=== PATIENT | female | born 1960 | race Caucasian/White ===

== ENCOUNTER → 2019-08-17 15:53 | Outpatient (CLI) | payer OTHER, SELFPAY ==
--- NOTE | 2019-08-17 15:59 | DI.RAD.S_ITS ---
PROCEDURE: XR TMJ BI INDICATIONS: R/O TMJ TECHNIQUE: 6 view(s) of the left and right temporomandibular joints acquired. COMPARISON: [facility], CT, HEAD WITHOUT CONTRAST, 11/27/2007, 15:39. FINDINGS: Bones: No fractures or dislocations. No suspicious bony lesions. Left temporomandibular joint space narrowing and sclerosis. Right temporomandibular sclerosis. There appears to be anatomic alignment although this would be better assessed with cross-sectional imaging Soft tissues: No suspicious soft tissue calcifications. IMPRESSION: Bilateral temporomandibular degenerative changes although radiographically left slightly greater than right. As clinically warranted, further assessment with dedicated temporomandibular joint MRI could be performed. Dictated by: Hi Soni M.D. on 08/17/2019 at 17:14 Approved by: Hi Soni M.D. on 08/17/2019 at 17:18
== END ==
PROVIDERS: PCP Nurse Practitioner; Visit Provider Nurse Practitioner
DX: R68.84 Jaw pain (principal)
CPT/HCPCS: 70330

== ENCOUNTER → 2019-08-30 08:23 | Outpatient (CLI) | payer OTHER, SELFPAY ==
--- NOTE | 2019-08-30 08:25 | DI.MRI.S_ITS ---
PROCEDURE: MR TMJ WO CON INDICATIONS: Right ear pain with eating/ jaw pain, abnormal TMJ xray TECHNIQUE: Axial T1 spin echo, coronal and sagittal PD fast spin echo through the temporomandibular joints, in both the closed- and open-mouth positions. COMPARISON: [facility], , XR TMJ BI, 08/17/2019, 15:56. FINDINGS: Image quality: Excellent. Right: On closed mouth view, the disc is poorly visualized but appears to be anterior to the mandibular head. On open mouth view the disc is also poorly visualized. Hypointense focus is noted anterior to the mandibular head, possibly a portion of the disc. There is sclerosis and narrowing at the temporomandibular joint. Left: On closed mouth view, the articular disc is anterior to the mandibular head. On open mouth views the disc is in anatomic position overlying the mandibular head. Joint is normally aligned on closed and open-mouth positioning. There is sclerosis and narrowing at the temporomandibular joint. IMPRESSION: 1. Sclerosis and narrowing of the TM joints bilaterally, as correlated with xray appearance. 2. The left side demonstrates dislocation of the disc with reduction. 3. The right side demonstrates suspected dislocation of the disc without reduction. As noted above, the disc is poorly visualized. Dictated by: Marisela Swan M.D. on 08/30/2019 at 14:01 Approved by: Marisela Swan M.D. on 08/30/2019 at 14:37
== END ==
PROVIDERS: PCP Nurse Practitioner; Visit Provider Nurse Practitioner
DX: M26.603 Bilateral temporomandibular joint disorder, unspecified (principal); H92.02 Otalgia, left ear; R68.84 Jaw pain; R93.89 Abnormal findings on diagnostic imaging of other specified body structures
CPT/HCPCS: 70336

== ENCOUNTER 2021-05-23 10:18 | Emergency (ER) | payer OTHER, SELFPAY ==
[2021-05-23] VITALS (9 sets, daily range): BP systolic 125–142; BP diastolic 65–73; PULSE 52–74; RESP 14–18; TEMP 36.6; O2SAT 99–100; BMI 22.3
[2021-05-23 11:52] LABS: Add Manual Diff / Slide Review NO; Basophils Absolute Auto 100 /uL (0-100); Basophils Percent Auto 0.9 % (0-2); Eosinophils Absolute Auto 100 /uL (0-450); Eosinophils Percent Auto 1.8 % (2-4); Hematocrit 36.2 % (36-46); Lymphocytes Absolute Auto 1500 /uL (1100-4500); Lymphocytes Percent Auto 18.1 % (25-40); Mean Corpuscular Volume 90.9 fL (80-100); Monocytes Absolute Auto 600 /uL (0-900); Monocytes Percent Auto 7.5 % (3-14); Neutrophils Absolute Auto 5900 /uL (1500-7000); Neutrophils Percent Auto 71.7 % (50-75); Platelet Count 415 X10^3/uL (150-400); Red Blood Cell Count 3.99 X10^6/uL (4.0-5.2); Red Cell Distribution Width 12.6 % (11.6-14.8); White Blood Cell Count 8.2 X10^3/uL (4.5-11.0)
--- NOTE | 2021-05-23 12:07 | ED.ABDPAIN ---
HPI - Abdominal Pain General Chief Complaint: Abdominal Pain Stated Complaint: pain in lower right abd Time Seen by Provider: 05/23/21 12:05 Source: patient Mode of arrival: Ambulatory Limitations: no limitations History of Present Illness HPI narrative: This is a 60-year-old female with known history of she states is well controlled. Patient has had a tubal ligation but no other intra-abdominal surgeries arrives for right lower quadrant pain that was quite severe last night. She states that Rashida on fairly suddenly became incredibly painful and then this morning improved quite quickly but is still present and a dull ache. She states it has been localized to the right lower quadrant. She does not think she had radiation to her flank but states possibly. She has not had any fevers or chills. She denies any nausea or vomit pain currently but was nauseated last night. She has had normal bowel movements which were slightly more soft than normal. No hematochezia or melena. She denies dysuria, urgency or frequency. She denies vaginal bleeding or discharge. She states it has probably been 15 years since she has had menstrual cycle. Patient states she has not had similar symptoms in the past. She contacted her primary care who referred her here. She states the pain is actually much improved than what it was last night. Related Data Previous Rx's Medication Instructions Recorded fluticasone propionate 50 1 spray INTRANASAL BID #3 inh 09/02/17 mcg/actuation nasal spray,suspension albuterol sulfate 2.5 mg INHALATION EVERY 4-6 HRS 12/28/18 PRN #60 vial albuterol sulfate 90 mcg/actuation 2 puff INHALATION Q4HP PRN #8.5 gm 02/17/21 aerosol inhaler (Proventil HFA) beclomethasone dipropionate 80 See Rx Instructions INHALATION BID 02/17/21 mcg/actuation aerosol inhaler #1 inh Allergies Allergy/AdvReac Type Severity Reaction Status Date / Time No Known Drug Allergies Allergy Verified 05/23/21 10:58 Review of Systems Review of Systems ROS Unobtainable: All systems reviewed & are unremarkable except as noted in HPI and below Patient History Surgical History Status post tubal ligation Family History Father Hearing loss Diabetes mellitus Hypertension Disease of pancreas Mother Age: 86 Breast CA Myocardial infarct Hypertension High cholesterol Social History Smoking Status: Never smoker Smoking Status: Never smoker alcohol intake frequency: holidays/special occasions only Substance Use Type: does not use Exam Narrative Exam Narrative: GENERAL: Alert and oriented x three, well-appearing female in mild distress. HEENT: Head normocephalic, atraumatic, EOMI, pupils reactive, face symmetric, moist mucous membranes NECK: Supple, full range of motion CARDIOVASCULAR: Regular rate and rhythm without murmurs, rubs or gallops. RESPIRATORY: Breath sounds equal bilaterally, no wheezes rales or rhonchi. ABDOMEN: Soft, very mild right lower quadrant tenderness. Normoactive bowel sounds all 4 quadrants. No guarding or rebound, rigidity, no mass. Nondistended. : No CVA tenderness EXTREMITIES: Normal range of motion, no clubbing or edema. Neurovascularly intact NEUROLOGICAL: Cranial nerves II through XII grossly intact. Moving all extremities SKIN: Warm, dry, no petechiae, no rashes or lesions. Initial Vital Signs Initial Vital Signs: Vital Signs Temperature 97.9 F 05/23/21 10:45 Pulse Rate 74 05/23/21 10:45 Respiratory Rate 14 05/23/21 10:45 Blood Pressure 142/67 H 05/23/21 10:45 Pulse Oximetry 99 05/23/21 10:45 Course Orders Ordered: ED Orders 05/23/21 11:05 Complete Blood Count AUTO DIFF Stat 05/23/21 11:37 EKG-12 Lead Stat 05/23/21 12:00 COVID19 -Nasal swab/Pre-Proc Stat 05/23/21 12:14 CT abdomen pelvis w con Stat 05/23/21 12:18 Comprehensive Metabolic Panel Stat Lipase Stat Vital Signs Vital signs: Vital Signs - 8 hr 05/23/21 11:06 05/23/21 11:30 05/23/21 12:00 Pulse Rate 59 L 59 L 54 L Respiratory Rate Blood Pressure Pulse Oximetry 100 100 100 05/23/21 12:30 05/23/21 13:00 05/23/21 13:25 Pulse Rate 57 L 56 L 52 L Respiratory Rate Blood Pressure 135/70 Pulse Oximetry 100 100 100 05/23/21 13:30 05/23/21 14:00 Pulse Rate 52 L 52 L Respiratory Rate 18 Blood Pressure 136/73 125/65 Pulse Oximetry 100 100 MDM - Abdominal Pain Lab Data Result diagrams: 05/23/21 11:05 05/23/21 12:18 Labs: Lab Results 05/23/21 05/23/21 05/23/21 Range/Units 11:05 12:00 12:18 WBC 8.2 (4.5-11.0) X10^3/uL RBC 3.99 L (4.0-5.2) X10^6/uL Hgb 12.0 (12.0-16.0) g/dL Hct 36.2 (36-46) % MCV 90.9 (80-100) fL MCH 30.0 (26-34) PG MCHC 33.0 (30-36) % RDW 12.6 (11.6-14.8) % Plt Count 415 H (150-400) X10^3/uL Neut % (Auto) 71.7 (50-75) % Lymph % (Auto) 18.1 L (25-40) % [place] % (Auto) 7.5 (3-14) % Eos % (Auto) 1.8 L (2-4) % Baso % (Auto) 0.9 (0-2) % Neut # (Auto) 5900 (6683-3753) /uL Lymph # (Auto) 1500 (4650-1791) /uL [place] # (Auto) 600 (0-900) /uL Eos # (Auto) 100 (0-450) /uL Baso # (Auto) 100 (0-100) /uL Sodium 140 (137-145) mmol/L Potassium 3.8 (3.4-5.1) mmol/L Chloride 105 (98-107) mmol/L Carbon Dioxide 27 (22-32) mmol/L BUN 12 (7-17) mg/dL Creatinine 0.72 (0.52-1.04) mg/dL Estimated GFR > 60.0 (>60) mL/min BUN/Creatinine Ratio 16.7 (6-22) Glucose 95 (80-110) mg/dL Calcium 9.5 (8.4-10.2) mg/dL Total Bilirubin 0.6 (0.2-1.3) mg/dL AST 21 (14-36) IU/L ALT 12 (<35) IU/L Alkaline Phosphatase 55 (38-126) U/L Total Protein 7.3 (6.3-8.2) g/dL Albumin 4.2 (3.5-5.0) g/dL Globulin 3.1 (1.7-4.1) g/dL Albumin/Globulin Ratio 1.4 (1.0-2.8) Lipase 322 H (23-300) U/L SARS-CoV-2 (PCR) Positive H (Negative) Point of care testing: Urine Dip Bedside Urine Glucose Negative Bedside Urine Bilirubin - Negative Bedside Urine Ketone - Negative Urine Specific [place] 1.010 Bedside Urine Occult Blood - Negative Bedside Urine pH 7 Bedside Urine Protein - Negative Bedside Urine Urobilinogen - Negative Bedside Urine Nitrite - Negative Bedside Urine Leukocytes - Negative Esterase Imaging Data CT scan - abdomen/pelvis: Radiologist's Impression: [address] [id number] Scan ReportSigned Patient: Breanna Green [facility]#: [id number]: 9Acct:[id number]/Sex: 60 / FDate of Service: 05/23/21Loc: EDAccession Number: [id number] Procedure: CT abdomen pelvis w con Ordering Provider: Deirdre Thomason D.O. PROCEDURE: CT ABDOMEN PELVIS W CON INDICATIONS: RLQ pain TECHNIQUE: After the administration of intravenous contrast, axial sections acquired from the lung bases to the pubic symphysis. Coronal and sagittal reformats were performed. For radiation dose reduction, the following was used: automated exposure control, adjustment of mA and/or kV according to patient size. COMPARISON: None. FINDINGS: ABDOMEN: Lung bases: Scattered atelectasis without focal consolidation. Fat containing posterior right diaphragmatic hernia. Heart: Normal in size. No pericardial effusion. Liver: Normal. Gallbladder: Partially contracted gallbladder Bile ducts: Normal. Pancreas: Normal. Spleen: Normal. Adrenals: Normal. Kidneys and Ureters: No hydronephrosis. Subcentimeter renal foci, statistically cysts, although technically too small to characterize accurately and therefore nonspecific. Stomach and duodenum: Normal. Bowel: Normal appendix. No bowel obstruction identified. Other: No free fluid or air. Abdominal nodes: Normal. Aorta and IVC: Normal in size. Ventral wall: Normal. PELVIS: Bladder: Normal. Inguinal region: No hernia. Pelvic nodes: Normal. Bones: No suspicious bony lesions. No vertebral body compression fractures. IMPRESSION: Normal appendix. No acute abnormality identified. Additional chronic and incidental findings as above. Dictated by: Hi Soni M.D. on 05/23/2021 at 13:23 Approved by: Hi Soni M.D. on 05/23/2021 at 13:29 ECG Data Attestation: I personally reviewed and interpreted this ECG as follows: Prior ECG tracings: not available for review Interpretation: Sinus bradycardia rate of 57 NV 158 QRS is 70 QTC of 404. No acute ST changes appreciated. MDM Narrative Medical decision making narrative: Is a 60-year-old female who had localized intense right lower quadrant pain which fairly suddenly resolved. She does not have any hematuria on her point of care urine which does make me concerned about possible ruptured appendicitis. Patient's labs were obtained. CT abdomen pelvis was obtained as well. Lung bases are negative. Fat containing posterior right diaphragmatic hernia. Subcentimeter renal foci which are likely cysts but to small technically to characterized. Patient does not have any acute incidental findings. Incidentally she was found to be COVID positive which is not likely cause of her abdominal pain today. Her symptoms have significantly improved. Plan for watchful waiting. Discharge Plan Departure Patient Disposition: Home Clinical Impression: Abdominal pain, COVID-19 virus infection Instructions: DI for Abdominal Pain-Adult, DI for COVID-19 (Suspected or Confirmed ) Activity Restrictions/Additional Instructions: Follow-up with your physician next week if your abdominal pain has not completely resolved. Your labs and imaging today did not show any causes of her abdominal pain. It is noted you have some small subcentimeter spots on her kidneys which are likely cysts but far too small even for CT to characterize. Is also noted to be a fat containing right diaphragmatic hernia which appears to be chronic per your CT findings. You may take Tylenol and or ibuprofen as needed for pain. It was noted today that your COVID swab is positive. Please return for new chest pain, shortness of breath, lightheadedness or passing out, swelling of your extremities, persistent vomiting, new or worsening abdominal pain, back or flank pain, black or bloody stools or other new or concerning symptoms. *You have been diagnosed with covid infection If you wish you may obtain a pulse oximeter for use at home to monitor. Please return to the ER if your pulse oximeter shows an O2 saturation less than 94%. *What to do: * per recommendations from the CDC and the [facility] Department of Health * stay home except to get medical care. Restrict activities outside your home, except for getting medical care. Do not go to work, school, or public areas. Avoid using public transportation, ride sharing, or taxis. * separate yourself from other people in your home. * call ahead before visiting your doctor * Wear a face mask * Cover your coughs and sneezes * Clean your hands often * Avoid sharing household items * Clean all high-touch services every day * Monitor your symptoms and seek prompt medical attention if your illness is worsening, particularly with difficulty in breathing. Discussed continuing home isolation * for individuals with symptoms who are confirmed or suspected cases of COVID-19 and are directed to care for themselves at home, discontinue home isolation under the following conditions: 1. At least 72 hours have passed since recovery, defined as resolution of fever without the use of fever reducing medications, and improvement in respiratory symptoms (cough, shortness of breath) AND, 2. At least 7 days have passed since symptoms 1st appeared Individuals with laboratory confirmed COVID-19 who have not had any symptoms may discontinue home isolation when at least 7 days have passed since the date of their 1st COVID-19 diagnostic test and have had no subsequent illness Prescriptions: No Action fluticasone propionate 16 GM spray,suspension 1 spray Intranasal BID Qty: 3 RF: 6 beclomethasone dipropionate 80 mcg/actuation aerosol See Rx Instructions Inhalation BID Qty: 1 RF: 11 albuterol sulfate [Proventil HFA] 90 mcg/actuation HFA aerosol inhaler 2 puff Inhalation Q4HP PRN (Reason: shortness of breath or wheezing) Qty: 8.5 RF: 5 albuterol sulfate 2.5 mg /3 mL (0.083 %) solution for nebulization 2.5 mg Inhalation EVERY 4-6 HRS PRN (Reason: shortness of breath or wheezing) Qty: 60 RF: 5 Referrals: Cheyenne Parker ARNP [Primary Care Provider] -
--- NOTE | 2021-05-23 12:14 | DI.CT.S_ITS ---
PROCEDURE: CT ABDOMEN PELVIS W CON INDICATIONS: RLQ pain TECHNIQUE: After the administration of intravenous contrast, axial sections acquired from the lung bases to the pubic symphysis. Coronal and sagittal reformats were performed. For radiation dose reduction, the following was used: automated exposure control, adjustment of mA and/or kV according to patient size. COMPARISON: None. FINDINGS: ABDOMEN: Lung bases: Scattered atelectasis without focal consolidation. Fat containing posterior right diaphragmatic hernia. Heart: Normal in size. No pericardial effusion. Liver: Normal. Gallbladder: Partially contracted gallbladder Bile ducts: Normal. Pancreas: Normal. Spleen: Normal. Adrenals: Normal. Kidneys and Ureters: No hydronephrosis. Subcentimeter renal foci, statistically cysts, although technically too small to characterize accurately and therefore nonspecific. Stomach and duodenum: Normal. Bowel: Normal appendix. No bowel obstruction identified. Other: No free fluid or air. Abdominal nodes: Normal. Aorta and IVC: Normal in size. Ventral wall: Normal. PELVIS: Bladder: Normal. Inguinal region: No hernia. Pelvic nodes: Normal. Bones: No suspicious bony lesions. No vertebral body compression fractures. IMPRESSION: Normal appendix. No acute abnormality identified. Additional chronic and incidental findings as above. Dictated by: Hi Soni M.D. on 05/23/2021 at 13:23 Approved by: Hi Soni M.D. on 05/23/2021 at 13:29
[2021-05-23 12:28] LABS: COVID19 -Nasal RAPID POSITIVE (Negative)
[2021-05-23 12:37] LABS: Alanine Aminotransferase 12 IU/L (<35); Albumin 4.2 g/dL (3.5-5.0); Albumin Globulin Ratio 1.4 (1.0-2.8); Alkaline Phosphatase 55 U/L (38-126); Aspartate Aminotransferase 21 IU/L (14-36); BUN Creatinine Ratio 16.7 (6-22); Bilirubin Total 0.6 mg/dL (0.2-1.3); Blood Urea Nitrogen 12 mg/dL (7-17); Calcium 9.5 mg/dL (8.4-10.2); Carbon Dioxide 27 mmol/L (22-32); Chloride 105 mmol/L (98-107); Estimated Glomerular Filt Rate > 60.0 mL/min (>60); Globulin 3.1 g/dL (1.7-4.1); Glucose 95 mg/dL (80-110); HEMOLYSIS < 15 (0-50); Lipase 322 U/L (23-300); Potassium 3.8 mmol/L (3.4-5.1); Sodium 140 mmol/L (137-145); Total Protein 7.3 g/dL (6.3-8.2)
== END 2021-05-23 14:07 | disposition home or self-care (01) ==
PROVIDERS: Emergency Provider Emergency Medicine; PCP Nurse Practitioner
DX: U07.1 COVID-19 (principal); R10.31 Right lower quadrant pain
CPT/HCPCS: 36415; 74177; 80053; 81003; 83690; 85025; 87635; 93005; 93010; 99283; 99284; C9803; Q9967

== ENCOUNTER → 2022-08-04 09:02 | Outpatient (CLI) | payer OTHER, SELFPAY ==
[2022-08-04 10:16] LABS: Hematocrit 36.4 % (36-46); Hemoglobin 12.4 g/dL (12.0-16.0); Mean Corpuscular Hemoglobin 30.4 PG (26-34); Mean Corpuscular Volume 89.6 fL (80-100); Platelet Count 273 X10^3/uL (150-400); Red Blood Cell Count 4.06 X10^6/uL (4.0-5.2); Red Cell Distribution Width 12.9 % (11.6-14.8); White Blood Cell Count 6.2 X10^3/uL (4.5-11.0)
[2022-08-04 10:44] LABS: Alanine Aminotransferase 20 IU/L (<35); Albumin 4.3 g/dL (3.5-5.0); Albumin Globulin Ratio 1.4 (1.0-2.8); Alkaline Phosphatase 66 U/L (38-126); Aspartate Aminotransferase 23 IU/L (14-36); Blood Urea Nitrogen 16 mg/dL (7-17); Calcium 9.5 mg/dL (8.4-10.2); Carbon Dioxide 28 mmol/L (22-32); Chloride 103 mmol/L (98-107); Cholesterol 239 mg/dL (140-199); Estimated Glomerular Filt Rate > 60 mL/min (>60); Glucose 89 mg/dL (80-110); HDL Cholesterol 62 mg/dL (40-60); HEMOLYSIS < 15 (0-50); LDL Cholesterol Calculated 159 mg/dL (<100); Potassium 4.1 mmol/L (3.4-5.1); Sodium 140 mmol/L (137-145); Total Protein 7.3 g/dL (6.3-8.2); Triglycerides 89 mg/dL (35-150)
[2022-08-04 11:03] LABS: Free T3, Triiodothyronine Free 3.53 pg/mL (2.77-5.27); Free T4, Direct Thyroxine 1.07 ng/dL (0.78-2.19)
[2022-08-04 11:17] LABS: Thyroid Stimulating Hormone 2.44 uIU/mL (0.47-4.68)
== END ==
PROVIDERS: PCP Nurse Practitioner; Referring Provider Nurse Practitioner; Visit Provider Nurse Practitioner
DX: Z00.00 Encounter for general adult medical examination without abnormal findings (principal); H93.8X1 Other specified disorders of right ear
CPT/HCPCS: 36415; 80053; 80061; 84439; 84443; 84481; 85027

== ENCOUNTER → 2023-11-25 08:44 | Outpatient (CLI) | payer OTHER, SELFPAY ==
[2023-11-25 09:27] LABS: Add Manual Diff / Slide Review NO; Basophils Absolute Auto 100 /uL (0-100); Basophils Percent Auto 1.8 % (0-2); Eosinophils Absolute Auto 700 /uL (0-450); Eosinophils Percent Auto 10.1 % (2-4); Hematocrit 37.8 % (36-46); Hemoglobin 12.8 g/dL (12.0-16.0); Lymphocytes Absolute Auto 2000 /uL (1100-4500); Mean Corpuscular HGB Conc 33.9 % (30-36); Mean Corpuscular Hemoglobin 30.2 PG (26-34); Mean Corpuscular Volume 89.1 fL (80-100); Monocytes Absolute Auto 600 /uL (0-900); Monocytes Percent Auto 7.9 % (3-14); Neutrophils Absolute Auto 3800 /uL (1500-7000); Neutrophils Percent Auto 52.2 % (50-75); Platelet Count 289 X10^3/uL (150-400); Red Blood Cell Count 4.25 X10^6/uL (4.0-5.2); Red Cell Distribution Width 13.3 % (11.6-14.8); White Blood Cell Count 7.3 X10^3/uL (4.5-11.0)
[2023-11-25 09:53] LABS: Creatinine Urine Random 38.9 mg/dL
[2023-11-25 09:59] LABS: Microalbumin Urine Random < 0.6 mg/dL (0-1.6)
[2023-11-25 10:00] LABS: Alanine Aminotransferase 18 IU/L (<35); Albumin 4.2 g/dL (3.5-5.0); Albumin Globulin Ratio 1.4 (1.0-2.8); Alkaline Phosphatase 61 U/L (38-126); Aspartate Aminotransferase 24 IU/L (14-36); BUN Creatinine Ratio 19.8 (6-22); Blood Urea Nitrogen 17 mg/dL (7-17); Carbon Dioxide 32 mmol/L (22-32); Chloride 106 mmol/L (98-107); Cholesterol 213 mg/dL (140-199); Estimated Glomerular Filt Rate > 60 mL/min (>60); Globulin 2.9 g/dL (1.7-4.1); Glucose 57 mg/dL (80-110); HDL Cholesterol 61 mg/dL (40-60); HEMOLYSIS < 15 (0-50); LDL Cholesterol Calculated 125 mg/dL (<100); Sodium 142 mmol/L (137-145); Total Protein 7.1 g/dL (6.3-8.2); Triglycerides 135 mg/dL (35-150)
[2023-11-25 10:31] LABS: Free T3, Triiodothyronine Free 3.68 pg/mL (2.77-5.27); Free T4, Direct Thyroxine 1.08 ng/dL (0.78-2.19)
[2023-11-25 10:45] LABS: Thyroid Stimulating Hormone 2.46 uIU/mL (0.47-4.68)
== END ==
PROVIDERS: PCP Nurse Practitioner; Referring Provider Nurse Practitioner; Visit Provider Nurse Practitioner
DX: Z00.00 Encounter for general adult medical examination without abnormal findings (principal)
CPT/HCPCS: 36415; 80053; 80061; 82043; 82570; 84439; 84443; 84481; 85025

== ENCOUNTER → 2023-12-02 09:41 | Outpatient (CLI) | payer OTHER, SELFPAY | LOC: RESP 09:42 | PROVIDERS: PCP Nurse Practitioner; Referring Provider Nurse Practitioner; Visit Provider Nurse Practitioner | DX: J45.909 Unspecified asthma, uncomplicated (principal) | CPT/HCPCS: 94060; 94726; 94729 ==